=== PATIENT | male | born 1945 | race African-American/Black ===

== ENCOUNTER 2019-02-05 10:43 | Emergency (ER) | payer OTHER ==
[~2019-02-05] VITALS: Ht 175.3 cm; Wt 72.6 kg
[2019-02-05] MEDS ORDERED: Bacitracin Oint UD TOPIC ONE (11:00)
[2019-02-05] MEDS ORDERED: Tetanus/Diptheria/Pertussis IM ONE ×2 (11:00→11:11)
[2019-02-05] MEDS: Acetaminophen 500mg (ES) tab ORAL ONE ×2 (11:00→11:07)
--- NOTE | 2019-02-05 11:12 | NUR ---
ED Nurse Note: X-ray tech at bedside for imaging.
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
[2019-02-05 11:49] VITALS: BP 118/74
--- NOTE | 2019-02-05 12:04 | Diagnostic Imaging Report ---
CT HEAD WITHOUT CONTRAST INDICATION: Reason For Exam: PAIN Technique: Continuous helical CT scanning of the head was performed without intravenous contrast material. Axial and coronal 5 mm sections were generated. Radiation dose was minimized using automated exposure control DOSE: Total Dose Length Product - DLP 1551.[address] Dose Index - CTDIvol(s) 62.7 mGy. COMPARISON: None available FINDINGS: There is no acute intracranial hemorrhage, mass effect or cortical edema. There are scattered periventricular and subcortical white matter hypodensities, which are often associated with chronic ischemic microvascular disease. There is moderate cortical cerebral volume atrophy. The ventricles, cisterns and sulci are normal for age. Visualized mastoid air cells and paranasal sinuses are unremarkable. No focal lesions of the bony calvarium or soft tissues of the scalp are seen. IMPRESSION: No evidence of acute intracranial hemorrhage, mass effect or cortical edema. MRI may be obtained for more sensitive evaluation as clinically indicated. The CT scanner at [facility] is accredited by the [employer] and the scans are performed using protocols designed to limit radiation exposure to as low as reasonably achievable to attain images of sufficient resolution adequate for diagnostic evaluation.
[2019-02-05] MEDS ORDERED: CEPHALEXIN500 MG ORAL (12:34)
--- NOTE | 2019-02-05 12:39 | NUR ---
DISCHARGE INSTRUCTION SEND WITH OFFICER [employer] ALSO GIVEN TO TAKE WITH PATIENT. PATIENT IS IN [employer]
[2019-02-05 12:40] VITALS: BP 118/74
--- NOTE | 2019-02-05 12:42 | NUR ---
MEDICAL CLEARENCE GIVEN TO [employer] OFFICER
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
== END 2019-02-05 12:40 | disposition home or self-care (01) ==
LOC: EDBD 10:43 → EMR 12:24
DX: S61.210A Laceration without foreign body of right index finger without damage to nail, initial encounter (principal); W26.0XXA Contact with knife, initial encounter; Y92.9 Unspecified place or not applicable; R51 Headache; Z23 Encounter for immunization; R47.81 Slurred speech
CPT/HCPCS: 70450; 90471; 90715; 99284